=== PATIENT | male | born 2000 | race Caucasian/White ===

== ENCOUNTER 2022-02-20 23:56 | Emergency (ER) | payer SELFPAY | END 2022-02-21 00:58 | disposition home or self-care (01) | LOC: JD.ED 23:56 | DX: F15.10 Other stimulant abuse, uncomplicated (principal); F12.90 Cannabis use, unspecified, uncomplicated; Z86.16 Personal history of COVID-19; Z87.891 Personal history of nicotine dependence | CPT/HCPCS: 99282 ==